=== PATIENT | female | born 1980 | race Asian ===

== ENCOUNTER 2017-04-03 23:59 | Emergency (ER) | payer OTHER ==
[2017-04-04 00:47] LABS: BASOPHIL % 1.1 % (0-2); PLATELET COUNT 289 x10^3mcL (130-400); RED CELL DISTRIBUTION WIDTH 13.4 % (11.5-14.5)
[2017-04-04 01:04] LABS: ALBUMIN 3.6 g/dL (3.4-5.0); ALKALINE PHOSPHATASE 53 U/L (46-116); ALT/SGPT 16 U/L (14-59); AST/SGOT 13 U/L (15-37); BILIRUBIN TOTAL 0.4 mg/dL (0.20-1.00); CARBON DIOXIDE 22.5 mmol/L (21-32); CHLORIDE SERUM 104 mmol/L (98-107); CREATININE SERUM 0.9 mg/dL (0.6-1.0); GFR1 > 60 mL/min; GLUCOSE SERUM 178 mg/dL (74-106); SODIUM SERUM 142 mmol/L (136-145); TOTAL PROTEIN, SERUM 7.2 g/dL (6.4-8.2)
[2017-04-04 05:15] VITALS: BP 118/70
== END 2017-04-04 05:15 | disposition home or self-care (01) ==
LOC: EDBD 23:59 → ED 23:59
PROVIDERS: Emergency Medicine
DX: H81.10 Benign paroxysmal vertigo, unspecified ear (principal); R11.10 Vomiting, unspecified; R53.1 Weakness; Z88.8 Allergy status to other drugs, medicaments and biological substances
CPT/HCPCS: J2405; J2765; J3360; J7030; J8597; Q0092

== ENCOUNTER 2018-05-25 14:56 | Emergency (ER) | payer OTHER ==
[~2018-05-25] VITALS: Ht 165.1 cm; Wt 53.5 kg
[2018-05-25 15:00] VITALS: BP 110/67; Ht 165.1 cm; Wt 53.5 kg
== END 2018-05-25 19:09 | disposition home or self-care (01) ==
LOC: ED 14:56
DX: S50.02XA Contusion of left elbow, initial encounter (principal); S50.01XA Contusion of right elbow, initial encounter; S30.1XXA Contusion of abdominal wall, initial encounter; S09.90XA Unspecified injury of head, initial encounter; Z88.8 Allergy status to other drugs, medicaments and biological substances; V18.4XXA Pedal cycle driver injured in noncollision transport accident in traffic accident, initial encounter; Y93.I9 Activity, other involving external motion; Y92.89 Other specified places as the place of occurrence of the external cause; Y99.8 Other external cause status
CPT/HCPCS: 90715; J1885

== ENCOUNTER 2018-05-27 11:51 | Emergency (ER) | payer OTHER ==
[~2018-05-27] VITALS: Ht 165.1 cm; Wt 54.9 kg
[2018-05-27 11:56] VITALS: Ht 165.1 cm; Wt 54.9 kg
[2018-05-27 14:30] VITALS: BP 124/67
== END 2018-05-27 14:30 | disposition home or self-care (01) ==
LOC: ED 11:51
DX: S80.811D Abrasion, right lower leg, subsequent encounter (principal); S06.0X9D Concussion with loss of consciousness of unspecified duration, subsequent encounter; V18.4XXD Pedal cycle driver injured in noncollision transport accident in traffic accident, subsequent encounter
CPT/HCPCS: J7030; J8597; Q0162